=== PATIENT | female | born 2005 | race Caucasian/White ===

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

== ENCOUNTER 2024-03-25 08:25 | Emergency (ER) | payer SELFPAY ==
--- NOTE | ~2024-03-25 | XR_ITS ---
EXAMINATION: XR abdomen/kub 1V DATE: 03/25/2024 08:56 INDICATION: Kidney stone. TECHNIQUE: A supine view of the abdomen on 2 radiographs was obtained. COMPARISON: None. FINDINGS: There are no dilated loops of bowel. In the right pelvis, there is a 3 mm calcification. IMPRESSION: 1. 3 mm calcification the right pelvis that may be a phlebolith or distal right ureteral stone. Reviewed, dictated and finalized at location A.
--- NOTE | 2024-03-25 08:27 | ED.FEMALEGU ---
HPI - Female Genitourinary General Chief complaint: Urogenital-Female Stated complaint: UTI Time Seen by Provider: 03/25/24 08:27 Source: patient Mode of arrival: ambulatory Limitations: no limitations History of Present Illness HPI Narrative: Alma is a 18-year-old female patient presenting to the clinic today with complaints of possible urinary tract infection. She reports she is having difficulty with urination for the past 2 days. Also reports some right-sided flank pain and right side pain. Reports that the flank pain is constant but the side pain comes and goes. She denies any associated fever, chills, body aches, abdominal pain, nausea vomiting, or diarrhea. Last bowel movement was this morning and normal for the patient. She denies any concern for any sexually transmitted infections. No abnormal vaginal discharge or odor. Is currently on her menses is-started 03/20/24. Denies chance of . She denies any pain currently. Related Data Home Medications Medication Instructions Recorded Confirmed dextroamphetamine-amphetamine 20 20 mg PO DAILY 12/15/19 03/25/24 mg tablet (Adderall) medroxyprogesterone 150 mg/mL 150 mg IM [id number] 12/15/19 03/25/24 intramuscular syringe (Depo-Provera) Allergies Allergy/AdvReac Type Severity Reaction Status Date / Time No Known Allergies Allergy Verified 03/25/24 08:32 Review of Systems Review of Systems: Pertinent positives per HPI. Patient denies any fever, chills, rash, headache, visual changes, dizziness, cough, runny nose, sore throat, shortness of breath, chest pain, palpitations, nausea, vomiting, diarrhea, constipation, abdominal pain. PMFSH Family History Family History Other Hypertension Social History Social History Smoking status: Never smoker Living arrangements: with family Occupation/Education: student Gender identity (if verbalized by the patient): Female Comments At the time of my signature, I reviewed and agree with the nursing past medical, surgical, social, and family history. There is no relevant family history pertinent to the patient complaint. Exam Narrative: General: Well-developed, morbidly obese, in no apparent distress. Head: Normocephalic, atraumatic. Cardio: Regular rate and rhythm, s1 and s2 normal, no murmur appreciated. Resp: Clear to auscultation bilaterally, no rhonchi, rales, wheezing or rubs. Abdomen: Soft, pliable, bowel sounds present in all quadrants, non-tender to palpation, no organomegly, no CVAT tenderness. Course Course Emergency Course: Portions of this record may have been created with voice recognition software. Level of Care: Express Care Visit Vital Signs Vital signs: Vital Signs Temperature 36.6 C 03/25/24 08:42 Pulse Rate 81 03/25/24 08:42 Respiratory Rate 16 03/25/24 08:42 Blood Pressure 137/81 03/25/24 08:42 Pulse Oximetry 100 03/25/24 08:42 Oxygen Delivery Room Air 03/25/24 08:42 Temperature 36.6 C 03/25/24 08:42 Pulse Rate 81 03/25/24 08:42 Respiratory Rate 16 03/25/24 08:42 Blood Pressure 137/81 03/25/24 08:42 Pulse Oximetry 100 03/25/24 08:42 Oxygen Delivery Room Air 03/25/24 08:42 Vital signs reviewed MDM - Female Genitourinary MDM Narrative Medical decision making narrative: At the time of visit patient is resting comfortably on the exam table. Patient appears to be nontoxic. Labs: UA shows trace blood. Otherwise no sign of infection. Patient is currently on her menses Diagnostics: KUB x-ray shows possible 3 mm calcification-phlebolith verses a right ureteral distal stone Plan: Patient is having right-sided flank pain with right side pain with difficulty with urination. Denies right flank pain at this time. I suspect patient has a right ureter distal stone. Prescription sent in for Lizandro
[2024-03-25 08:42] VITALS: BP 137/81; PULSE 81; RESP 16; TEMP 36.6; O2SAT 100
== END 2024-03-25 10:00 | disposition home or self-care (01) ==
PROVIDERS: Emergency Provider Nurse Practitioner Family
DX: N20.1 Calculus of ureter (principal)
CPT/HCPCS: 74018; 81003; 99213; G0463

== ENCOUNTER 2024-05-23 08:17 | Emergency (ER) | payer SELFPAY ==
[2024-05-23 08:26] VITALS: BP 122/92; PULSE 75; RESP 18; TEMP 36.5; O2SAT 100
--- NOTE | 2024-05-23 08:54 | ED.HEATRA ---
HPI - Head Injury General Chief complaint: Head Injury Stated complaint: RAMON,nauseated,hit head last pm Time Seen by Provider: 05/23/24 08:46 Source: patient and RN notes reviewed Mode of arrival: ambulatory Limitations: no limitations History of Present Illness HPI Narrative: Patient presents today complaining of a head injury. At 10:00 p.m. last night patient tripped and fell forward, striking her forehead on some pavement. Denies loss of consciousness or any other injury. She reports some mild headache that she rates 4/10. She also reports some nausea. Denies vomiting, vision changes, numbness or tingling in the extremities, neck pain, dizziness, lightheadedness. She has been taking Tylenol and applying ice to her forehead with mild relief. Related Data Allergies Allergy/AdvReac Type Severity Reaction Status Date / Time No Known Allergies Allergy Verified 05/23/24 08:33 Review of Systems Review of Systems: CONSTITUTIONAL: Denies body aches, fever, chills, or sweats. EYES: Denies visual changes, redness, or discharge. ENT: Denies rhinorrhea, congestion, sore throat, or otalgia. CARDIOVASCULAR: Denies chest pain, palpitations, or edema. RESPIRATORY: Denies cough or dyspnea. GASTROINTESTINAL: Denies abdominal pain, vomiting, or diarrhea.+ nausea GENITOURINARY: Denies dysuria or hematuria. SKIN: Denies rash, itching, or wounds. MUSCULOSKELETAL: Denies back pain, joint pain, or myalgia. NEUROLOGIC: Denies numbness, tingling, or weakness.+ headache PSYCH: Denies depression or anxiety. PMFSH Family History Family History Other Hypertension Social History Social History Smoking status: Never smoker Living arrangements: with family Occupation/Education: student Gender identity (if verbalized by the patient): Female Comments At time of signature, I have reviewed and agree with nursing past medical, surgical, social and family history unless otherwise noted. Please see nursing chart for further information. There is no relevant family history pertinent to the presenting complaint Exam Narrative: GENERAL: Well-appearing, well-nourished, and in no acute distress. HEAD: Normocephalic. faint bruising to the right upper forehead and left eyebrow area. Mild swelling to the left eyebrow. EYES: EOMI. PERRL. No redness or drainage. Conjunctivae normal. ENT: Mucous membranes pink and moist. NECK: Normal AROM. Supple. No lymphadenopathy. Neck is nontender CHEST: No respiratory distress. Clear to auscultation. HEART: Regular rate and rhythm. No murmur appreciated. EXTREMITIES: Normal range of motion. No edema. SKIN: Warm, dry, no rash. Capillary refill normal. Normal skin turgor. NEURO: No focal deficits. Alert and oriented x3. Gait steady. PSYCH: Normal affect. No signs of depression or anxiety. Course Course Level of Care: Express Care Visit Vital Signs Vital signs: Vital Signs Temperature 97.7 F 05/23/24 08:26 Pulse Rate 75 05/23/24 08:26 Respiratory Rate 18 05/23/24 08:26 Blood Pressure 122/92 H 05/23/24 08:26 Pulse Oximetry 100 05/23/24 08:26 Oxygen Delivery Room Air 05/23/24 08:26 Temperature 97.7 F 05/23/24 08:26 Pulse Rate 75 05/23/24 08:26 Respiratory Rate 18 05/23/24 08:26 Blood Pressure 122/92 H 05/23/24 08:26 Pulse Oximetry 100 05/23/24 08:26 Oxygen Delivery Room Air 05/23/24 08:26 Reviewed MDM - Head Injury MDM Narrative Medical decision making narrative: Patient's symptoms are due to concussion. Discussed concussion symptoms and duration of symptoms as well as treatment. Prescription for Zofran sent to pharmacy for nausea symptoms. Work note given as well as ED precautions. Differential Diagnosis Differential diagnosis: Likely concussion without loss of consciousness, closed head injury and postconcussion sy
== END 2024-05-23 09:07 | disposition home or self-care (01) ==
PROVIDERS: Emergency Provider Nurse Practitioner
DX: S06.0X0A Concussion without loss of consciousness, initial encounter (principal); W01.198A Fall on same level from slipping, tripping and stumbling with subsequent striking against other object, initial encounter
CPT/HCPCS: 99213; G0463